=== PATIENT | female | born 1965 | race African-American/Black ===

== ENCOUNTER → 2021-07-23 | Day surgery (SDC) | payer MEDICARE ==
[~2021-07-23] VITALS: Ht 157.5 cm; Wt 94.8 kg
[~2021-07-23] MED LIST: BACLOFEN10 MG PO; CATAPRES0.1 MG PO; COZAAR 25MG TAB25 MG PO; COZAAR50 MG PO; INSULIN SYRING1 EA11 SC; IRON325 M1 PO; LIPITOR20 MG PO; LOSARTAN-HCTZ1 EAC2 PO; NEURONTIN800 MG PO; ONDANSETRON HCL4 MG PO; PERCOCET 5-3251 EACH PO; PRILOSEC20 MG PO; TOUJEO MAX300 UNIT/1 SC; TRAZODONE 50MG50 MG PO; VOLTAREN **OUT50 MG PO; ZOLOFT25 MG PO
== END | disposition home or self-care (01) ==
LOC: FAS 10:23
DX: K29.50 Unspecified chronic gastritis without bleeding (principal); K31.89 Other diseases of stomach and duodenum; K25.9 Gastric ulcer, unspecified as acute or chronic, without hemorrhage or perforation; K57.30 Diverticulosis of large intestine without perforation or abscess without bleeding; I12.9 Hypertensive chronic kidney disease with stage 1 through stage 4 chronic kidney disease, or unspecified chronic kidney disease; E11.22 Type 2 diabetes mellitus with diabetic chronic kidney disease; N18.4 Chronic kidney disease, stage 4 (severe); D63.1 Anemia in chronic kidney disease; G47.30 Sleep apnea, unspecified; M19.041 Primary osteoarthritis, right hand; M19.042 Primary osteoarthritis, left hand; K21.9 Gastro-esophageal reflux disease without esophagitis; E78.5 Hyperlipidemia, unspecified; G47.00 Insomnia, unspecified; E11.42 Type 2 diabetes mellitus with diabetic polyneuropathy; E66.9 Obesity, unspecified; Z68.39 Body mass index [BMI] 39.0-39.9, adult; Z87.440 Personal history of urinary (tract) infections; Z91.51 Personal history of suicidal behavior; Z79.4 Long term (current) use of insulin; Z79.899 Other long term (current) drug therapy; Z88.2 Allergy status to sulfonamides; Z91.018 Allergy to other foods; Z90.6 Acquired absence of other parts of urinary tract; Z98.890 Other specified postprocedural states
CPT/HCPCS: J2250; J2704; J7120